=== PATIENT | male | born 1980 | race Caucasian/White ===

== ENCOUNTER 2023-12-01 14:04 | Outpatient (CLI) | payer OTHER ==
[~2023-12-01 14:04] MED LIST: PERCOCET 5/3251 TAB PO
[2023-12-01 14:32] LABS: HEMATOCRIT 43.7 % (39.0-48.0); HEMOGLOBIN 15.4 g/dL (13-16.00); MEAN CELL VOLUME 86.8 fL (80.0-100.00); MEAN CORPUSCULAR HEMOGLOBIN 30.6 pg (27.00-32.0); MEAN CORPUSCULAR HGB CONC 35.2 g/dl (32.0-36.0); PLATELET COUNT 235 K/uL (150-450); RED BLOOD COUNT 5.03 M/uL (4.00-6.00); RED CELL DISTRIBUTION WIDTH 13.8 % (11.5-14.5)
[2023-12-01 15:16] LABS: ALBUMIN 4.2 gm/dL (3.4-5.0); BILIRUBIN TOTAL 0.87 mg/dL (0.3-1.2); CALCIUM 9.4 mg/dL (8.5-10.1); CREATININE SERUM 0.83 mg/dL (0.70-1.30); GFR 100.19; GLOBULINA 3.5 G/DL (2.4-3.5); POTASSIUM 4.25 mEq/L (3.5-5.1); TOTAL PROTEIN 7.7 gm/dL (6.4-8.2)
== END 2023-12-01 15:19 | disposition home or self-care (01) ==
LOC: LAB 14:04
PROVIDERS: ATTEND Surgery
DX: Z12.11 Encounter for screening for malignant neoplasm of colon (principal)

== ENCOUNTER 2025-03-01 09:16 | Emergency (ER) | payer OTHER ==
[~2025-03-01] VITALS: Ht 177.8 cm; Wt 86.6 kg
[2025-03-01] MEDS ORDERED: COZAAR100 MG PO (09:58)
[2025-03-01] MEDS ORDERED: CRESTOR40 MG PO (09:58)
[2025-03-01] MEDS ORDERED: 0.9 % SODIUM CHLORIDE 1,000 ML IV ONE (10:30)
[2025-03-01] MEDS ORDERED: DEXAMETHASONE SODIUM PHOSPHATE 4 MG/ML VIAL IM ONE (10:30)
[2025-03-01] MEDS ORDERED: ACETAMINOPHEN 500 MG GEL..CAP PO ONE ×2 (10:30→10:43)
[2025-03-01] MEDS ORDERED: CEFTRIAXONE SODIUM 2,000 MG VIAL IV ONE (10:30)
[2025-03-01] MEDS ORDERED: LIDOCAINE HCL VISCOUS 20MG/ML BLIST 15ML MM ONE ×2 (10:30→10:44)
[2025-03-01] MEDS ORDERED: DEXAMETHASONE SODIUM PHOSPHATE 4 MG/ML VIAL ONE (10:43)
[2025-03-01] MEDS ORDERED: CEFTRIAXONE SODIUM 2,000 MG VIAL ONE ×2 (10:44→12:02)
[2025-03-01] MEDS ORDERED: LIDOCAINE HCL 1% 10ML VIAL ONE (11:12)
[2025-03-01 12:19] LABS: BASO % 0.3 % (0.1-1.2); EOS # 0.02 (0.04-0.54); EOS % 0.6 % (0.7-7.0); LYMPH # 0.61 (1.18-3.74); LYMPH % 19.6 % (19.3-53.1); MEAN PLATELET VOLUME 9.70 fl (9.4-12.4); MONO # 0.64 (0.24-0.82); NEUT # 1.83 (1.56-6.13); NEUT % 58.7 % (34.0-71.1); RED CELL DISTRIBUTION WIDTH 11.7 % (11.6-14.4)
[2025-03-01 12:20] LABS: MONO % 20.5 % (4.7-12.5)
[2025-03-01 12:49] LABS: ALT/SGPT 42.0 U/L (12-78); AST/SGOT 29.0 U/L (15-37); BILIRUBIN TOTAL 1.19 mg/dL (0.3-1.2); BUN CREA RATIO 10.0 (7.0-25.0); CREATININE SERUM 1.0 mg/dL (0.70-1.30); GFR 80.44; GLOBULINA 3.7 G/DL (2.4-3.5); GLUCOSE FASTING 74.0 mg/dL (65-100); OSMOLALITY SERUM 273.0 MOSM/KG (275-295)
[2025-03-01 13:32] LABS: COVID-19 AG NEGATIVE (NEGATIVE)
== END 2025-03-01 15:19 | disposition home or self-care (01) ==
LOC: ER 09:16
DX: B34.9 Viral infection, unspecified (principal); J03.80 Acute tonsillitis due to other specified organisms; R53.1 Weakness; R50.9 Fever, unspecified; I10 Essential (primary) hypertension; Z20.822 Contact with and (suspected) exposure to COVID-19